=== PATIENT | female | born 1980 | race Two or more races ===

== ENCOUNTER 2016-07-16 10:50 | Observation (INO) | payer BC, MEDICAID ==
[~2016-07-16] VITALS: Ht 167.6 cm; Wt 78.0 kg
[~2016-07-16 10:50] MED LIST: PRENATAL
[2016-07-16 11:03] VITALS: BP 127/90
[2016-07-18] MEDS ORDERED: IBUP-1222 PO (07:05)
[2016-07-18] MEDS ORDERED: DOCU-30 PO (07:06)
== END 2016-07-16 16:00 | disposition home or self-care (01) ==
LOC: LDOP 10:50 → LDIP 14:26
PROVIDERS: ADMIT Student in an Organized Health Care Education/Training Program; ATTEND Student in an Organized Health Care Education/Training Program
DX: O46.93 Antepartum hemorrhage, unspecified, third trimester (principal); O24.419 Gestational diabetes mellitus in pregnancy, unspecified control; O26.893 Other specified pregnancy related conditions, third trimester; R10.9 Unspecified abdominal pain; Z3A.37 37 weeks gestation of pregnancy
CPT/HCPCS: 59025; 76819; 82962; G0378